=== PATIENT | male | born 1970 | race Hispanic/Latino ===

== ENCOUNTER → 2022-12-10 | Outpatient (CLI) | payer MEDICAID ==
[2022-12-10 12:38] LABS: CREATININE 1.2 mg/dL (0.5-1.5); POTASSIUM 4.3 mmol/L (3.5-5.1)
== END | disposition home or self-care (01) ==
LOC: LAB 09:03
PROVIDERS: ATTEND Internal Medicine Cardiovascular Disease
DX: R06.9 Unspecified abnormalities of breathing (principal)
CPT/HCPCS: 36415; 80048; 83880

== ENCOUNTER → 2023-01-17 | Outpatient (CLI) | payer MEDICAID | END | disposition home or self-care (01) | LOC: SHCH 12:32 | PROVIDERS: ATTEND Internal Medicine Cardiovascular Disease | DX: I08.3 Combined rheumatic disorders of mitral, aortic and tricuspid valves (principal); R06.09 Other forms of dyspnea | CPT/HCPCS: 93306 ==

== ENCOUNTER 2023-02-04 07:37 | Day surgery (SDC) | payer MEDICAID ==
[2023-02-02 09:30] LABS: BASOPHILS # (AUTO) 0.03 K/uL (0.00-0.20); BASOPHILS % (AUTO) 0.5 % (0.0-5.0); EOSINOPHILS # (AUTO) 0.14 K/uL (0.00-0.70); EOSINOPHILS % (AUTO) 2.3 % (0.0-8.0); HEMATOCRIT 34.7 % (42-54); IMMATURE GRANULOCYTE ABSOLUTE 0.01 K/uL (0-1); LYMPHOCYTES # (AUTO) 1.2 K/uL (1.0-4.8); LYMPHOCYTES % (AUTO) 19.1 % (21.0-51.0); MEAN CORPUSCULAR HEMOGLOBIN 29.3 pg (27.0-33.0); MEAN CORPUSCULAR HGB CONC 33.7 g/dL (32.0-36.0); MEAN CORPUSCULAR VOLUME 86.8 fL (79-99); MONOCYTES # (AUTO) 0.7 K/uL (0.1-1.0); MONOCYTES % (AUTO) 10.8 % (3.0-13.0); NEUTROPHILS # (AUTO) 4.1 K/uL (1.8-7.7); NEUTROPHILS % (AUTO) 67.1 % (40.0-77.0); PLATELET COUNT (AUTO) 215 K/uL (130-400); RED CELL DISTRIBUTION WIDTH 14.7 % (11.0-15.5)
[2023-02-02 09:31] VITALS: BP 140/86; PULSE 75; RESP 18
[2023-02-02 09:38] LABS: CREATININE 1.1 mg/dL (0.5-1.5); POTASSIUM 4.1 mmol/L (3.5-5.1)
[2023-02-02 09:40] LABS: INR 1.01 (0.85-1.15); PROTHROMBIN TIME 11.7 SEC (9.6-11.6)
[2023-02-02 09:42] LABS: PARTIAL THROMBOPLASTIN TIME 28.6 SEC (26.3-35.5)
[~2023-02-04] VITALS: Ht 175.3 cm; Wt 68.5 kg
[2023-02-04] VITALS (11 sets, daily range): BP systolic 113–151; BP diastolic 73–93; PULSE 74–83; RESP 15–18
[~2023-02-04 07:37] MED LIST: AEC81 PO; ATOR40TA71 PO; CEFD300C3 PO; CLOP75TA32 PO; FURO40TA5 PO; GENT15CR7 TP; LISPRO SQ; METO-408 PO; SACU1TAB PO; SANTO TP
[2023-02-04] MEDS ORDERED: 0.9%NACL 1000ML 1,000 ML IV ONE (07:46)
[2023-02-04] MEDS ORDERED: LIDOCAINE HCL 400MG/20ML VIAL ONE (10:30)
[2023-02-04] MEDS ORDERED: HEPARIN 10,000 UNIT/10ML (1,000 UNIT/ML) VIAL ONE (10:31)
[2023-02-04] MEDS ORDERED: IOHEXOL-350 50ML VIAL IV ONE (10:31)
[2023-02-04] MEDS ORDERED: NITROGLYCERIN 50MG VIAL ONE (10:31)
[2023-02-04] MEDS ORDERED: NICARDIPINE 25MG INJ IV ONE (10:31)
[2023-02-04] MEDS ORDERED: IOHEXOL 350 MG/ML 100ML INFUS..BTL IV ONE (10:31)
[2023-02-04] MEDS ORDERED: MIDAZOLAM HCL 1 MG/ML 2ML VIAL ONE (11:03)
[2023-02-04] MEDS ORDERED: FENTANYL CITRATE PF 50 MCG/1 ML 2ML VIAL ONE (11:03)
[2023-02-04] MEDS ORDERED: DEXTROSE 50%-WATER 50 ML DISP.SYRIN IV PRN (12:30)
[2023-02-04] MEDS ORDERED: GLUCAGON 1MG KIT 1 MG ML IM PRN (12:30)
[2023-02-04] MEDS ORDERED: 0.9%NACL 1000ML 1,000 ML IV SCH (12:30)
== END 2023-02-04 17:05 | disposition home or self-care (01) ==
LOC: DAH 07:37
PROVIDERS: ATTEND Internal Medicine Cardiovascular Disease
DX: I25.119 Atherosclerotic heart disease of native coronary artery with unspecified angina pectoris (principal); I25.82 Chronic total occlusion of coronary artery; I25.5 Ischemic cardiomyopathy; I11.0 Hypertensive heart disease with heart failure; I50.42 Chronic combined systolic (congestive) and diastolic (congestive) heart failure; E11.51 Type 2 diabetes mellitus with diabetic peripheral angiopathy without gangrene; E78.5 Hyperlipidemia, unspecified; M86.8X7 Other osteomyelitis, ankle and foot; E11.69 Type 2 diabetes mellitus with other specified complication; Z98.890 Other specified postprocedural states; Z79.01 Long term (current) use of anticoagulants; Z79.899 Other long term (current) drug therapy; Z79.82 Long term (current) use of aspirin; Z82.49 Family history of ischemic heart disease and other diseases of the circulatory system; Z83.3 Family history of diabetes mellitus
CPT/HCPCS: 80048; 85025; 85610; 85730; 36415; 71045; 93005; 93458; 82948 ×2; A6260; C1769 ×2; C1894 ×3; C1760; J3010; J3490 ×3; J7030; J1644 ×2; J2250; Q9967 ×2; A4215; A4222; A4663; A4216; A4606; A4223 ×3; 99156; 99157